=== PATIENT | female | born 1970 | race Caucasian/White ===

== ENCOUNTER → 2018-07-02 | Day surgery (SDC) | payer BC ==
[~2018-07-02] MED LIST: FENTANYL CITR 100 MCG/2 ML ONE; KETOROLAC 30 MG/ML INJ ONE; LIDOCAINE 1% MPF 5 ML VIAL ONE; LIDOCAINE 1.5% W/EPI AMP 5 ML ONE; MIDAZOLAM HCL 2 MG/2 ML INJ ONE; NA CHLORIDE 0.9% 1,000 ML ONE; PROPOFOL 200 MG/20 ML VIAL IV ONE; Ringers Lactate 1,000 ML IV ONE
[2018-07-02 09:38] LABS: Specific Gravity 1.025 (1.005-1.030)
[2018-07-02] MEDS: LIDOCAINE 1.5% W/EPI AMP 5 ML ONE ×2 (11:15→11:47)
--- NOTE | 2018-07-03 00:21 | OP ---
Date of Procedure: 07/02/2018 Surgeon: Marlyn Berry MD Preoperative Diagnosis: Menorrhagia. Postoperative Diagnosis: Menorrhagia. Procedure Performed: 1.Hysteroscopy. 2.Dilation and curettage. Anesthesia: MAC plus paracervical block with 1.5% lidocaine mixed with 1:200,000 epinephrine. Complications: None. Drains: None. Specimens: Endometrial curettings. Condition: Stable. Findings: Uterine cavity; anteflexed, long thickened endometrium with slightly irregular endometrium globally. No intracavitary lesions. Both tubal ostia were well visualized. Scope removed and adeq uate sampling performed. Indications: The patient is a 48-year-old who presented with heavy menstrual periods, dysmenorrhea, most likely with some fibroids, as well as low back pain. She had an ultrasound, which showed thicke ruthy endometrium. Before we went ahead and did any surgical procedure for her, endometrial sampling w as considered essential and she was brought to the OR. The largest fibroid the patient had was about 18 cm. Description Of Procedure: After informed consent was verified, she was taken back to OR, placed in t he supine fashion on the operating table. After general anesthesia was given, she was placed in the dorsal lithotomy position. Pelvic exam was performed. Uterus was enlarged. The fibroid more palpat ed on the right side, large about 16 to 18 weeks in size. Speculum placed to expose the cervix and i njected the anterior lip with 1.5% lidocaine mixed with 1:200,000 epinephrine, 5 cc in the front and then at 4 and 8 o'clock position, 3 cc each. A prep x3 with Betadine was done. Diagnostic SlimLine hysteroscope was used to enter the cervical canal and uterine cavity. The cavity was empty with slig htly irregular endometrium, but no intracavitary lesions. Both tubal ostia were visualized. Scope r emoved. Endometrial curettings were performed adequately. The patient was recovered from anesthesia . Instrument, needle, and sponge counts were done and were correct at the end of the case. The kristel ent tolerated the procedure well. She will follow up with me in 1 week. MARTA/GAURAV Voice ID: [id number] Report ID: [id number]
== END ==
LOC: OR 09:20
PROVIDERS: ATTEND Obstetrics & Gynecology
PROC: 0UJD8ZZ Inspection of Uterus and Cervix, Via Natural or Artificial Opening Endoscopic (ICD-10-PCS; 2018-07-02)
PROC: 0UDB7ZX Extraction of Endometrium, Via Natural or Artificial Opening, Diagnostic (ICD-10-PCS; principal; 2018-07-02 10:30)
DX: N92.0 Excessive and frequent menstruation with regular cycle (principal); N94.6 Dysmenorrhea, unspecified; D25.1 Intramural leiomyoma of uterus
CPT/HCPCS: 81025; 83001; 88305; J2001; J2250; J2704; J3010; J7030

== ENCOUNTER 2018-08-26 06:22 | Day surgery (SDC) | payer BC ==
[2018-08-24 12:04] LABS: Urine Appearance CLEAR; Urine Bilirubin NEGATIVE (NEG); Urine Blood NEGATIVE (NEG); Urine Color YELLOW; Urine Glucose NEGATIVE (NEG); Urine Protein NEGATIVE (NEG); Urine pH 5.5 (5.0-7.0)
[2018-08-24 12:05] LABS: Urine Urobilinogen 0.2 mg/dL (0.2-1.0)
[2018-08-24 12:07] LABS: Absolute Lymphocytes (CBC) 2.2 K/uL (0.7-4.9); Absolute Monocytes 0.5 K/uL (0.1-1.3); Absolute Neutrophil 1.9 K/uL (1.8-8.0); Basophils % 0.9 % (0-1.3); Eosinophils % 3.8 % (0-4.4); Hematocrit 40.4 % (36.0-45.0); Lymphocytes % 46.2 % (15.3-44.8); Monocytes % 9.4 % (3.3-12.3); RBC Red Blood Cell Count 4.62 M/uL (3.86-4.86)
[2018-08-24 12:08] LABS: Urine Microscopic Reflex ORDER UMIC
[2018-08-24 12:20] LABS: Urine Yeast PRESENT (NONE SEEN); Urine Yeast with Hyphae PRESENT
[2018-08-24 12:21] LABS: Urine Bacteria <20 /HPF (<20); Urine Culture Reflex Order REFLEXED; Urine RBC NONE SEEN /HPF (NONE SEEN)
[2018-08-24 12:50] LABS: Blood Morphology Comment NOT SEEN (NOT SEEN); Platelet Estimate ADEQ
[2018-08-26] MEDS ORDERED: SCOPOLAMINE HYDROBROMIDE PATCH TD ONE (06:56)
[2018-08-26] MEDS ORDERED: Ringers Lactate 1,000 ML IV ONE ×2 (06:56→08:58)
[2018-08-26] MEDS ORDERED: CEFAZOLIN/SWI 2gm 2 GM/20 ML SYR ONE (06:57)
[2018-08-26] MEDS ORDERED: PROPOFOL 200 MG/20 ML VIAL IV ONE (07:06)
[2018-08-26] MEDS ORDERED: ROCURONIUM 50 MG/5 ML VIAL IV ONE ×2 (07:07→08:49)
[2018-08-26] MEDS ORDERED: GLYCOPYRROLATE 0.2 MG/ML SYR ONE (07:07)
[2018-08-26] MEDS ORDERED: DEXAMETHASONE 10 MG/ML VIAL ONE (07:08)
[2018-08-26] MEDS ORDERED: LIDOCAINE 2% MPF 5 ML VIAL ONE (07:08)
[2018-08-26] MEDS ORDERED: FENTANYL CITR 250 MCG/5 ML ONE ×2 (07:09→08:39)
[2018-08-26] MEDS ORDERED: ONDANSETRON 4 MG/2 ML VIAL ONE (07:10)
[2018-08-26] MEDS ORDERED: NEOSTIGMINE 1 MG/ML -10 ML VIAL ONE (07:10)
[2018-08-26] MEDS ORDERED: NA CHLORIDE 0.9% 1,000 ML ONE (07:12)
[2018-08-26] MEDS ORDERED: MIDAZOLAM HCL 2 MG/2 ML INJ ONE (07:21)
[2018-08-26 07:40] LABS: Specific Gravity 1.015 (1.005-1.030)
[2018-08-26] MEDS ORDERED: MEPERIDINE HCL 25 MG/0.5 ML ONE ×2 (08:53→12:17)
[2018-08-26] MEDS ORDERED: KETOROLAC 30 MG/ML INJ ONE (10:48)
[2018-08-26] MEDS ORDERED: Mastisol Adhesive Liq ONE (11:34)
[2018-08-26] MEDS ORDERED: HYDROCODONE/APAP 5/325 MG TAB ONE (13:09)
[2018-08-26] MEDS ORDERED: IBUPROFEN 400 MG TAB ONE (13:41)
[2018-08-26] MEDS ORDERED: IBUPROFEN 200 MG TAB PO ONE (13:41)
[2018-08-26] MEDS ORDERED: PROMETHAZINE 25 MG/ML VIAL ONE (13:51)
--- NOTE | 2018-08-27 09:52 | OP ---
Date of Procedure: 08/26/2018 Surgeon: Marlyn Berry MD Skilled Trades Teacher: Nicole Kelly. Preoperative Diagnoses: Menorrhagia, fibroids (AUB-O), dysmenorrhea, low back pain, urinary frequenc y. Postoperative Diagnoses: Menorrhagia, fibroids (AUB-O), dysmenorrhea, low back pain, urinary frequen cy, adhesions of the omentum, no endometriosis. Procedures Performed: Total laparoscopic hysterectomy, bilateral salpingectomy, lysis of adhesions, and mini-laparotomy for morcellation of the uterus in a bag (contained morcellation), cystoscopy. Anesthesia: General endotracheal. Specimens: Uterus, bilateral tubes. Complications: No complications. Drains: No drains. Condition: Stable. Ebl: Less than 50. Findings: Uterus was enlarged with multiple leiomyomata, the largest of which was about 6 to 8 cm, s ome degenerated, most of the fibroids intramural, one posterior cul-de-sac with subserosal leiomyoma hanging in the cul-de-sac. Both ovaries normal. Tubes unremarkable. No space in the rectum anterior-posterior direction, small space bilaterally. Indications: The patient is a 48-year-old with heavy bleeding, enlarging uterus, palpable pelvic mas s, evaluated for ruling out cancer. No endometrial malignancy or atypia noted or leiomyosarcoma on e ndometrial sampling. After the patient was consented appropriately, given her pain and the size of t he uterus, bowel and urinary symptoms and back pain, due to the physical presence of the tumor, conse nted for laparoscopic hysterectomy, bilateral salpingectomy. The patient desired to have ovarian pre servation. Unless there was a dire need for removal of the ovaries, we would not remove them. Description Of Procedure: After informed consent was verified with the patient, she was taken back t o the OR, placed in a supine fashion on the operating table. 2 g of Ancef was given. The patient di d well with this. After general anesthesia was given, she was placed in dorsal lithotomy position us ing Cole garza. Arms were tucked by the side after positioning was ensured. The entire abdomen, vulva, vagina, and perineum were prepped and draped in a sterile fashion. James was placed to drain the bladder and attached to cysto tubing, emptied 300, retrograde filling was to be done as needed a nd so the LR bag was connected to the James bag. A speculum was placed to expose the cervix. Anteri or lip grasped with 2 Allis clamps. Uterus sounded to 17 cm, placed a large VCare and fixed in place . This area was draped. A 1.5 cm supraumbilical incision was made with a scalpel using the open lap aroscopy technique. Fascia was incised, tagged on both sides. Entry into the peritoneal cavity was gentle. After Duran was introduced, the S-retractors removed. The 5 mm left lower quadr ant incision was made here. A 5 mm EnSeal device was also opened up; however, initially scissors wer e used to take down the adhesions from the right lower and right upper quadrants without any problems so that we could even get started with the case. This took about 15 minutes of the case. After all adhesions were sharply taken down with the help of laparoscopic scissors and all these were taken do wn in right lower quadrant, 5 mm port was placed suprapubic, 10 mm port was placed under direct visio n, and the peritoneum had to be incised with the scissors for me to enter this since there was no spa ce to securely put this without perforating the uterus. Then, stitch was placed on the epiploicae of the sigmoid colon with 3-0 Monocryl and retrieved with the Afshin-Jack needle in the left upper quadrant. This was to retract the sigmoid superiorly. There was no visualization of the right later al aspect lateral wall, and therefore, this had to be done for me to visualize. The fibroids were pr essing down directly on the posterior aspect of the pelvis towards the back and so I had to retract i n order for me to get access to the sidewall. Once the entire uterus was well visualized, the right ovary and tube were easily visualized. There was a large posterior fibroid and so plan was to start with the left side first, then once that was detached and everything right side. 5 mm EnS eal was used. Mesosalpinx and tube were taken down. Utero-ovarian ligament on the left side was tana en down, then the round ligament was taken down. The peritoneum to take down the anterior peritoneal reflection all the way to the left. The bladder flap was raised appropriately. The poste rior peritoneum was taken down all the way to the level of the left uterosacral ligament. The ureter s were well visualized in the sidewall and far away. Once the broad ligament was skeletonized to exp ose the vessels, then opposite side dissection was started. Same way, utero-ovarian ligament, mesosa lpinx, tube were all taken down, then the round ligament was taken down, and I proceeded with raising the anterior peritoneum of the broad ligament and connecting with the suprapubic area. The entire b ladder was dissected down at this point, and posteriorly, the peritoneum was taken down to the right uterosacral ligament. The ureter was far away from here. Then, the broad ligament was skeletonized. The broad ligament was taken down to skeletonize the right uterine vessels. Once this was done, th e bladder flap was cleaned out by opening up the loose areolar tissue in front of the anterior vagina l wall. Once the VCare cup was well exposed, then a small window was made with the tip of a monopola r parallel to the vessels medially, and once this was done, bipolar basket tip was used to cauterize, then the EnSeal was used to cauterize and cut. The uterine ascending artery, uterine vein, and the cardinal ligaments were also taken down with the help of the LigaSure and then taken down with the En Seal. Similar dissection was performed on the opposite side as well and without any problems. Then, circumferential colpotomy was performed with monopolar hook blade in circumferential fashion without too much difficulty. After thorough irrigation and suction were performed, the uterus was preserved in the right upper quadrant. Then, tubes were picked up and taken down with the help of the EnSeal. The ovaries were left in place. The vaginal cuff was completely well irrigated and suctioned. The n, 0 Vicryl sutures were placed at both angles and 3 [id number] in the center to bring all the layers together included the distal uterosacral ligaments. Once these sutures were all tied down, t hen the 10 mm suprapubic port was removed, and the large Enrico bag was folded up and inserted throug h the skin incision which was extended about a centimeter. Once the entire bag was placed in the abd ominal cavity, I was able to cut the retention sutures on the top and the bottom part. Then, once th e uterus was placed in the bag, the entire specimen was kept contained by pulling out the Enrico ring through the suprapubic incision. All the trocars were removed under direct vision. Gas was desuffl ated. Umbilical incision closed with the help of 0 Vicryl in a [id number]-fl-ikyfc fashion and all the o ther incisions were closed with the help of simple stitches. After extending the size of the 2 cm incision to about 5, then the muscles were after fasci a was incised. Peritoneal incision was extended, and I was able to open the morcellator bag, used th e guard around the mouth of it and manually morcellated the entire uterus and removed it through this incision. These were all sent out for permanent pathology. Then, thorough irrigation and suction w ere performed. Peritoneum closed with the help of 3-0 Vicryl. The muscles brought together with sim ple 0 Vicryl stitch and fascia closed with the help of 0 Vicryl in a continuous running fashion. Sub cutaneous tissues were brought together with a simple 3-0 Vicryl stitch. Skin incisions all closed w ith the help of 4-0 Vicryl. All the James and the VCare were removed. Cystoscopy was performed with a 30-degree lens, normal saline for distention medium. Both ureteric orifices had strong jets of ur ine from them and no evidence of any trauma or bladder problems. The bladder was drained. The vagin a was checked. Instrument, needle, and sponge counts x3 were correct at the end of the case. The richard amaya tolerated the procedure well. She will follow up with me in 1 week. MARTA/GAURAV Voice ID: [id number] Report ID: [id number]
== END 2018-08-26 15:31 | disposition home or self-care (01) ==
LOC: OR 06:22
PROVIDERS: ATTEND Obstetrics & Gynecology
PROC: 0UT74ZZ Resection of Bilateral Fallopian Tubes, Percutaneous Endoscopic Approach (ICD-10-PCS; 2018-08-26)
PROC: 0UT94ZZ Resection of Uterus, Percutaneous Endoscopic Approach (ICD-10-PCS; principal; 2018-08-26 07:30)
DX: N92.0 Excessive and frequent menstruation with regular cycle (principal); N94.6 Dysmenorrhea, unspecified; D35.1 Benign neoplasm of parathyroid gland; N88.8 Other specified noninflammatory disorders of cervix uteri; N80.0 Endometriosis of uterus; N83.8 Other noninflammatory disorders of ovary, fallopian tube and broad ligament
CPT/HCPCS: 36415; 81003; 81015; 81025; 85025; 86850; 86900; 86901; 87086; 87088; 88307; J0690; J1100; J2175; J2250; J2405; J2550; J2704; J2710; J3010; J7030